=== PATIENT | female | born 1960 | race Caucasian/White ===

== ENCOUNTER 2022-08-28 07:34 | Day surgery (SDC) | payer BC ==
[~2022-08-28 07:34] MED LIST: Lactated Ringers 1,000 ML IV SCH; Lidocaine 1% 4 ML ONE; Lidocaine 1%/Sod Bicarbonate in NS 8.4% 1 ML Syringe IDERM PRN; Midazolam 1 MG/ML 2 ML SDV ONE; Propofol 200 MG/20 ML SDV ONE; Sodium Chloride 0.9% 10 ML Syringe FLUSH PRN; Sodium Chloride 0.9% 10 ML Syringe FLUSH SCH
[2022-08-28] MEDS ORDERED: Ondansetron 4 MG/2 ML SDV ONE (08:36)
[2022-08-28] MEDS ORDERED: Ondansetron 4 MG/2 ML SDV IVPUSH PRN (08:52)
[2022-08-28] MEDS ORDERED: Famotidine 20 MG/2 ML SDV ONE (08:55)
== END 2022-08-28 12:40 | disposition home or self-care (01) ==
LOC: JD.SDS 07:34
PROVIDERS: ATTEND Surgery
DX: Z12.11 Encounter for screening for malignant neoplasm of colon (principal); F41.9 Anxiety disorder, unspecified; E03.9 Hypothyroidism, unspecified; G35 Multiple sclerosis; E11.9 Type 2 diabetes mellitus without complications; E78.00 Pure hypercholesterolemia, unspecified; Z91.040 Latex allergy status; Z79.899 Other long term (current) drug therapy; Z79.890 Hormone replacement therapy; Z98.890 Other specified postprocedural states; Z87.891 Personal history of nicotine dependence; Z79.84 Long term (current) use of oral hypoglycemic drugs
CPT/HCPCS: 45378; 82947; J2250; J2704; J3490; J7120; J2405

== ENCOUNTER 2023-01-26 07:49 | Emergency (ER) | payer BC ==
[2023-01-26] MEDS ORDERED: Ketorolac 30 MG/ML SDV IM ONE (08:35)
[2023-01-26] MEDS ORDERED: Orphenadrine 100 MG Tab.ER PO ONE (08:36)
== END 2023-01-26 11:36 | disposition home or self-care (01) ==
LOC: JD.ED 07:49
DX: S39.012A Strain of muscle, fascia and tendon of lower back, initial encounter (principal); E78.00 Pure hypercholesterolemia, unspecified; E03.9 Hypothyroidism, unspecified; Z91.040 Latex allergy status; Z79.899 Other long term (current) drug therapy; X50.1XXA Overexertion from prolonged static or awkward postures, initial encounter
CPT/HCPCS: 96372; 99283; A9270; J1885